=== PATIENT | female | born 1945 | race Two or more races ===

== ENCOUNTER → 2016-08-24 | Outpatient (CLI) | payer MEDICARE ==
[~2016-08-24] MED LIST: ACET325T14 PO; CIPR500T87 PO; CLON0.1T PO; CLOT10TR PO; ENAL20TA68 PO; LORA-445 PO; METF500T27 PO; OMEP-110 PO; PARO40TA45 PO
== END | disposition home or self-care (01) ==
LOC: CVU 09:13
PROVIDERS: ATTEND Internal Medicine Cardiovascular Disease
DX: I08.3 Combined rheumatic disorders of mitral, aortic and tricuspid valves (principal); I10 Essential (primary) hypertension; E11.9 Type 2 diabetes mellitus without complications; I63.9 Cerebral infarction, unspecified; I25.2 Old myocardial infarction; I65.23 Occlusion and stenosis of bilateral carotid arteries; R06.02 Shortness of breath; F17.210 Nicotine dependence, cigarettes, uncomplicated
CPT/HCPCS: 93306; 93880; 93978

== ENCOUNTER → 2016-08-31 | Outpatient (CLI) | payer MEDICARE | END | disposition home or self-care (01) | LOC: CARD 15:41 | PROVIDERS: ATTEND Internal Medicine Cardiovascular Disease | DX: R06.02 Shortness of breath (principal); I63.9 Cerebral infarction, unspecified; I10 Essential (primary) hypertension; F17.210 Nicotine dependence, cigarettes, uncomplicated | CPT/HCPCS: 94060; 94729 ==

== ENCOUNTER → 2016-09-01 | Outpatient (CLI) | payer MEDICARE ==
[~2016-09-01] MED LIST changes: +REGADENOSON 0.4 MG/5 ML SYRINGE ONE
== END | disposition home or self-care (01) ==
LOC: CFH 08-26 08:46
PROVIDERS: ATTEND Internal Medicine Cardiovascular Disease
DX: I10 Essential (primary) hypertension (principal); R06.02 Shortness of breath; I63.9 Cerebral infarction, unspecified; F17.210 Nicotine dependence, cigarettes, uncomplicated
CPT/HCPCS: 78452; 93017; A9502; J2785

== ENCOUNTER → 2018-03-29 | Outpatient (CLI) | payer OTHER ==
[~2018-03-29] MED LIST changes: -CLON0.1T PO; +CLON0.1T22 PO; +GADOBUTROL 7.5 MMOL/7.5 ML PFS ONE; -PARO40TA45 PO; +PARO40TA61 PO; -REGADENOSON 0.4 MG/5 ML SYRINGE ONE
== END | disposition home or self-care (01) ==
LOC: RAD 13:38
PROVIDERS: ATTEND Family Medicine
DX: R55 Syncope and collapse (principal); H53.9 Unspecified visual disturbance
CPT/HCPCS: 70553; A9585

== ENCOUNTER 2018-09-05 15:39 | Emergency (ER) | payer OTHER ==
[~2018-09-05] VITALS: Ht 157.5 cm; Wt 75.0 kg
[~2018-09-05 15:39] MED LIST changes: -GADOBUTROL 7.5 MMOL/7.5 ML PFS ONE
[2018-09-05 15:41] VITALS: BP 118/63
[2018-09-05] MEDS ORDERED: ACETAMINOPHEN 500 MG TABLET PO ONE (16:30)
[2018-09-05] MEDS ORDERED: ACETAMINOPHEN 500 MG TABLET ONE (16:31)
--- NOTE | 2018-09-05 16:37 | NUR ---
PT HERE FOR CHRONIC BACK PAIN. PT DENIES TRAUMA AT THIS TIME.
--- NOTE | 2018-09-05 17:08 | NUR ---
Patient/Caregiver given discharge instructions and they have confirmed that they understand the instructions. Patient ambulatory with steady gait.
== END 2018-09-05 17:10 | disposition home or self-care (01) ==
LOC: ED 16:45
DX: G89.29 Other chronic pain (principal); M54.5 Low back pain; E78.5 Hyperlipidemia, unspecified; I10 Essential (primary) hypertension; E11.9 Type 2 diabetes mellitus without complications; F17.200 Nicotine dependence, unspecified, uncomplicated
CPT/HCPCS: 99282

== ENCOUNTER → 2018-09-19 | Outpatient (CLI) | payer OTHER | END | disposition home or self-care (01) | LOC: CFH 09:26 | PROVIDERS: ATTEND Nurse Practitioner Family | DX: M47.817 Spondylosis without myelopathy or radiculopathy, lumbosacral region (principal); M48.07 Spinal stenosis, lumbosacral region | CPT/HCPCS: 72148 ==

== ENCOUNTER 2019-04-04 06:29 | Inpatient (IN) | payer MEDICARE ==
[2019-04-01 09:06] LABS: BASOPHILS # (AUTO) 0.06 x10^3/uL (0-0.1); BASOPHILS % (AUTO) 1 % (0-1); EOSINOPHILS % (AUTO) 4 % (1-7); LYMPHOCYTES # (AUTO) 2.22 x10^3/uL (1-3.4); LYMPHOCYTES % (AUTO) 30 % (22-44); MD NO; MEAN CORPUSCULAR HEMOGLOBIN 28.4 pg (27.0-34.8); MEAN CORPUSCULAR HGB CONC 32.5 g/dL (32.4-35.8); MEAN CORPUSCULAR VOLUME 87.2 fL (80-100); MEAN PLATELET VOLUME 10.4 fL (7.4-10.4); MONOCYTES # (AUTO) 0.63 x10^3/uL (0.2-0.8); MONOCYTES % (AUTO) 9 % (2-9); NEUTROPHILS # (AUTO) 4.09 x10^3/uL (1.8-6.8); NEUTROPHILS % (AUTO) 56 % (42-75); PLATELET COUNT 204 x10^3/uL (130-400); RED BLOOD COUNT 4.41 x10^6/uL (3.82-5.3); RED CELL DISTRIBUTION WIDTH 15.6 % (9.6-15.2)
[2019-04-01 09:19] LABS: INTERNATIONAL NORMALIZED RATIO 0.98 (0.93-1.1); PROTHROMBIN TIME 10.3 Seconds (9.6-11.5)
[2019-04-01 09:21] LABS: CHLORIDE 109 mmol/L (98-107)
[2019-04-01 09:27] LABS: MICROSCOPIC INDICATED
[2019-04-01 09:28] LABS: ALANINE AMINOTRANSFERASE 21 U/L (12-78); ALBUMIN 3.8 g/dL (3.4-5.0); ALKALINE PHOSPHATASE 134 U/L (45-117); ANION GAP 10 mmol/L (5-15); BILIRUBIN,TOTAL 0.2 mg/dL (0.2-1.0); CALCIUM 8.5 mg/dL (8.5-10.1); CREATININE 0.81 mg/dL (0.55-1.02); TOTAL PROTEIN 7.8 g/dL (6.4-8.2)
[~2019-04-04] VITALS: Ht 157.5 cm; Wt 83.9 kg
[~2019-04-04 06:29] MED LIST changes: +BACITRACIN 50,000 UNIT ONE; +BUPIVACAINE/PF 0.5% ONE; +EPINEPHRINE 1 MG/ML, 1ML ONE; +NICO1PAT31 TD; +PARO10TA3 PO; +VANCOMYCIN 1,000 MG ONE
[2019-04-04] MEDS ORDERED: SCOPOLAMINE PATCH, 1.5MG PATCH.TD72 TD ONE (07:30)
[2019-04-04] MEDS ORDERED: GABAPENTIN 300 MG CAPSULE PO ONE (07:30)
[2019-04-04] MEDS ORDERED: ACETAMINOPHEN 500 MG TABLET PO ONE (07:30)
[2019-04-04] MEDS ORDERED: LACTATED RINGERS 1,000 ML IV SCH (08:16)
[2019-04-04] MEDS ORDERED: FENTANYL PF 250 MCG/5ML ONE (08:32)
[2019-04-04] MEDS ORDERED: MIDAZOLAM 1 MG/ML, 2ML ONE (08:32)
[2019-04-04 08:53] LABS: MICROSCOPIC INDICATED
[2019-04-04] MEDS ORDERED: ROCURONIUM 10MG/ML,5ML ONE (09:31)
[2019-04-04] MEDS ORDERED: SUCCINYLCHOLINE 20 MG/ML, 10ML ONE (09:31)
[2019-04-04] MEDS ORDERED: DEXAMETHASONE 4 MG/ML, 1ML ONE (09:31)
[2019-04-04] MEDS ORDERED: PROPOFOL 10 MG/ML, 20ML ONE (09:31)
[2019-04-04] MEDS ORDERED: ONDANSETRON 2MG/ML, 2ML ONE (09:31)
[2019-04-04] MEDS ORDERED: SUGAMMADEX 200 MG/2 ML IVPush ONE (09:31)
[2019-04-04] MEDS ORDERED: CEFAZOLIN 1,000 MG ONE (09:31)
[2019-04-04] MEDS ORDERED: MEPERIDINE/PF 25MG/0.5ML IVPush PRN ×2 (11:00)
[2019-04-04] MEDS ORDERED: METOCLOPRAMIDE 5 MG/ML, 2ML IV PRN ×2 (11:00)
[2019-04-04] MEDS ORDERED: DIAZEPAM 5 MG/ML, 2ML IV PRN ×2 (11:00)
[2019-04-04] MEDS ORDERED: ALBUTEROL SULFATE 2.5 MG/3 ML NPPB PRN ×2 (11:00)
[2019-04-04] MEDS ORDERED: HYDROmorphone 1 MG/ML, 1ML INJ IV PRN ×2 (11:00)
[2019-04-04] MEDS ORDERED: LABETALOL 5MG/ML, 20ML IV PRN ×3 (11:00→15:00)
[2019-04-04] MEDS ORDERED: KETOROLAC 30 MG/1 ML IV PRN ×2 (11:00)
[2019-04-04] MEDS ORDERED: OXYcodone 5 MG/5 ML ORAL.SOL UDC PO PRN ×2 (11:00)
[2019-04-04] MEDS ORDERED: PROMETHAZINE 25 MG/ML, 1ML IV PRN ×2 (11:00)
[2019-04-04] MEDS ORDERED: hydrALAzine 20 MG/ML, 1ML IV PRN ×2 (11:00)
[2019-04-04] MEDS ORDERED: ONDANSETRON 2MG/ML, 2ML IVPush PRN ×2 (11:00)
[2019-04-04] MEDS ORDERED: FENTANYL PF 100 MCG/2ML IV PRN (11:00)
[2019-04-04] MEDS ORDERED: METHOCARBAMOL 1,000 MG in DEXTROSE 5% 100 ML IV ONE (12:30)
[2019-04-04] MEDS ORDERED: FENTANYL PF 100 MCG/2ML ONE (13:01)
[2019-04-04] MEDS: FENTANYL PF 100 MCG/2ML IV PRN ×2 (13:03→13:08)
[2019-04-04] MEDS ORDERED: BISACODYL 10 MG SUPP PR PRN (15:00)
[2019-04-04] MEDS ORDERED: DIPHENHYDRAMINE 50 MG/ML, 1ML IM PRN (15:00)
[2019-04-04] MEDS ORDERED: METHOCARBAMOL 750 MG TABLET PO PRN (15:00)
[2019-04-04] MEDS ORDERED: ONDANSETRON 2MG/ML, 2ML IV PRN (15:00)
[2019-04-04] MEDS ORDERED: HYDROcodone/APAP 5/325 TABLET PO PRN (15:00)
[2019-04-04] MEDS ORDERED: DIPHENHYDRAMINE 50 MG/ML, 1ML IVPush PRN (15:00)
[2019-04-04] MEDS ORDERED: PROMETHAZINE 25 MG/ML, 1ML IM PRN (15:00)
[2019-04-04] MEDS: NICOTINE MC SCH ×2 (15:30→23:30)
[2019-04-04] MEDS ORDERED: DIPHENHYDRAMINE 25 MG CAPSULE PO PRN (16:00)
[2019-04-04] MEDS ORDERED: HYDROmorphone 2 MG/ML, 1ML IVPush PRN (16:00)
[2019-04-04] MEDS: INSULIN REGULAR 100 UNITS/ML, 3ML VIAL SQ-INSULIN SCH ×2 (17:18→21:00)
[2019-04-04] MEDS: NS + 20MEQ KCL 1,000 ML IV SCH (17:23)
[2019-04-04] MEDS: CEFAZOLIN PMX 1GM/50ML 50 ML IVPB SCH (17:30)
[2019-04-04 18:32] VITALS: BP 134/73
[2019-04-04] MEDS: ENALAPRIL 20MG TABLET PO SCH (23:16)
[2019-04-04] MEDS: metFORMIN XR 500 MG TAB.ER.24H PO SCH (23:16)
[2019-04-04] MEDS: OXYcodone/APAP 5/325MG TABLET PO PRN (23:19)
[2019-04-04] MEDS: PAROXETINE 20 MG TABLET PO SCH (23:19)
[2019-04-05 00:33] VITALS: BP 133/66
[2019-04-05] MEDS: CEFAZOLIN PMX 1GM/50ML 50 ML IVPB SCH ×2 (01:30→20:51)
[2019-04-05] MEDS: NS + 20MEQ KCL 1,000 ML IV SCH (02:00)
[2019-04-05 04:13] VITALS: BP 148/74
[2019-04-05] MEDS: OXYcodone/APAP 5/325MG TABLET PO PRN (04:39)
[2019-04-05] MEDS ORDERED: BACITRACIN 50,000 UNIT ONE (06:22)
[2019-04-05] MEDS ORDERED: EPINEPHRINE 1 MG/ML, 1ML ONE (06:22)
[2019-04-05] MEDS ORDERED: BUPIVACAINE/PF 0.25% ONE (06:22)
[2019-04-05] MEDS ORDERED: THROMBIN 5,000 UNIT VIAL TP ONE (06:22)
[2019-04-05] MEDS ORDERED: BUPIVACAINE/PF 0.5% ONE (06:22)
[2019-04-05] MEDS ORDERED: VANCOMYCIN 1,000 MG ONE (06:22)
[2019-04-05] MEDS: OMEPRAZOLE 20 MG CAPSULE.DR PO SCH (06:59)
[2019-04-05 07:09] VITALS: BP 129/68
[2019-04-05 07:22] LABS: ANION GAP 8 mmol/L (5-15); CALCIUM 8.1 mg/dL (8.5-10.1); CHLORIDE 110 mmol/L (98-107); CREATININE 0.69 mg/dL (0.55-1.02)
[2019-04-05 07:39] LABS: BASOPHILS # (AUTO) 0.03 x10^3/uL (0-0.1); BASOPHILS % (AUTO) 0 % (0-1); EOSINOPHILS # (AUTO) 0.02 x10^3/uL (0-0.4); EOSINOPHILS % (AUTO) 0 % (1-7); LYMPHOCYTES # (AUTO) 1.65 x10^3/uL (1-3.4); LYMPHOCYTES % (AUTO) 18 % (22-44); MD NO; MEAN CORPUSCULAR HEMOGLOBIN 28.3 pg (27.0-34.8); MEAN CORPUSCULAR HGB CONC 32.8 g/dL (32.4-35.8); MEAN CORPUSCULAR VOLUME 86.5 fL (80-100); MEAN PLATELET VOLUME 11.8 fL (7.4-10.4); MONOCYTES # (AUTO) 0.68 x10^3/uL (0.2-0.8); MONOCYTES % (AUTO) 7 % (2-9); NEUTROPHILS % (AUTO) 75 % (42-75); PLATELET COUNT 156 x10^3/uL (130-400); RED BLOOD COUNT 3.83 x10^6/uL (3.82-5.3); RED CELL DISTRIBUTION WIDTH 15.3 % (9.6-15.2)
[2019-04-05] MEDS: INSULIN REGULAR 100 UNITS/ML, 3ML VIAL SQ-INSULIN SCH ×4 (07:48→21:33)
[2019-04-05] MEDS ORDERED: BUTALB/APAP/CAFFEINE 50MG/325MG/40MG PO ONE (08:30)
[2019-04-05] MEDS ORDERED: PAROXETINE 20 MG TABLET PO SCH (09:00)
[2019-04-05] MEDS: SENNA/DOCUSATE TABLET PO SCH (09:31)
[2019-04-05] MEDS: PAROXETINE 10 MG TABLET PO SCH (09:31)
[2019-04-05] MEDS: NICOTINE 14MG/24 HR PATCH.TD24 TD SCH (09:31)
[2019-04-05] MEDS ORDERED: FENTANYL PF 250 MCG/5ML ONE (10:09)
[2019-04-05] MEDS ORDERED: GLYCOPYRROLATE 0.2MG/1ML, 5ML ONE (10:17)
[2019-04-05] MEDS ORDERED: PROPOFOL 10 MG/ML, 20ML ONE (10:17)
[2019-04-05] MEDS ORDERED: PROPOFOL 100 ML ONE (10:17)
[2019-04-05] MEDS ORDERED: ROCURONIUM 10MG/ML,5ML ONE (10:17)
[2019-04-05] MEDS ORDERED: ONDANSETRON 2MG/ML, 2ML ONE (10:17)
[2019-04-05] MEDS ORDERED: DEXAMETHASONE 4 MG/ML, 1ML ONE (10:17)
[2019-04-05] MEDS ORDERED: NEOSTIGMINE 1 MG/ML, 10ML ONE (10:17)
[2019-04-05] MEDS ORDERED: CEFAZOLIN 1,000 MG ONE (10:17)
[2019-04-05] MEDS ORDERED: BUPIVACAINE 0.25% ONE (10:21)
[2019-04-05] MEDS ORDERED: ACETAMINOPHEN 500 MG TABLET PO ONE (10:30)
[2019-04-05] MEDS ORDERED: GABAPENTIN 300 MG CAPSULE PO ONE (10:30)
[2019-04-05] MEDS ORDERED: HALOPERIDOL 5 MG/ML IV PRN (11:30)
[2019-04-05] MEDS ORDERED: hydrALAzine 20 MG/ML, 1ML IV PRN (11:30)
[2019-04-05] MEDS ORDERED: PROMETHAZINE 25 MG/ML, 1ML IV PRN (11:30)
[2019-04-05] MEDS ORDERED: OXYcodone 5 MG/5 ML ORAL.SOL UDC PO PRN (11:30)
[2019-04-05] MEDS ORDERED: MORPHINE SULFATE 4 MG/ML, 1ML IVPush PRN (11:30)
[2019-04-05] MEDS ORDERED: LABETALOL 5MG/ML, 20ML IV PRN (11:30)
[2019-04-05] MEDS ORDERED: FENTANYL PF 100 MCG/2ML IV PRN (11:30)
[2019-04-05] MEDS ORDERED: HYDROmorphone 2 MG/ML, 1ML IVPush PRN (11:30)
[2019-04-05] MEDS ORDERED: MEPERIDINE/PF 25MG/ML,1ML IVPush PRN (11:30)
[2019-04-05] MEDS ORDERED: PROPOFOL 10 MG/ML, 50ML ONE (11:32)
[2019-04-05] MEDS ORDERED: PHENYLEPHRINE 10 MG/ML ONE (11:32)
[2019-04-05] MEDS ORDERED: EPINEPHRINE 1 MG/ML, 1ML INFIL ONE (12:34)
[2019-04-05] MEDS ORDERED: BUPIVACAINE/PF 0.5% INFIL ONE (12:34)
[2019-04-05] MEDS ORDERED: VANCOMYCIN 1,000 MG IM ONE (12:35)
[2019-04-05] MEDS ORDERED: BUPIVACAINE LIPOSOME/PF 20ML INFIL ONE (12:35)
[2019-04-05] MEDS ORDERED: FENTANYL PF 100 MCG/2ML ONE ×2 (12:51→13:08)
[2019-04-05] MEDS ORDERED: BUPIVACAINE/PF 0.25% EPIDPUSH ONE (13:12)
[2019-04-05] MEDS ORDERED: FENTANYL PF 100 MCG/2ML EPIDPUSH ONE (13:13)
[2019-04-05] MEDS ORDERED: BUPIVACAINE LIPOSOME/PF 10ML INFIL ONE (13:26)
[2019-04-05] MEDS ORDERED: EPHEDRINE 50 MG/ML, 1ML ONE (13:43)
[2019-04-05] MEDS: EPHEDRINE 50 MG/ML, 1ML IVPush PRN ×3 (13:48→14:33)
[2019-04-05] MEDS ORDERED: HYDROcodone/APAP 10/325 MG TABLET PO PRN (14:00)
[2019-04-05] MEDS ORDERED: PHARMACY MAY ADJ FOR RENAL FX MC PRN (14:00)
[2019-04-05] MEDS ORDERED: METHOCARBAMOL 750 MG TABLET PO PRN (14:00)
[2019-04-05] MEDS ORDERED: PROMETHAZINE 25 MG/ML, 1ML IM PRN (14:00)
[2019-04-05] MEDS ORDERED: CYCLOBENZAPRINE 10 MG TABLET PO PRN (14:00)
[2019-04-05] MEDS ORDERED: ONDANSETRON 2MG/ML, 2ML IVPush PRN (14:00)
[2019-04-05] MEDS ORDERED: morphine SULFATE 10 MG/ML, 1ML IVPush PRN (14:00)
[2019-04-05] MEDS ORDERED: PHENYLEPHRINE 10 MG in SODIUM CHLORIDE 0.9% 249 ML IV PRN (15:00)
[2019-04-05 17:01] VITALS: BP 107/56
[2019-04-05 19:28] VITALS: BP 123/65
[2019-04-05] MEDS: metFORMIN XR 500 MG TAB.ER.24H PO SCH (21:27)
[2019-04-05] MEDS: PAROXETINE 20 MG TABLET PO SCH (21:27)
[2019-04-05] MEDS: ENALAPRIL 20MG TABLET PO SCH (21:28)
[2019-04-05] MEDS: SODIUM CHLORIDE FLUSH 10ML SYR IVF SCH (21:30)
[2019-04-06] VITALS: BP 124/63
[2019-04-06] MEDS: OXYcodone/APAP 5/325MG TABLET PO PRN ×2 (00:51→05:56)
[2019-04-06] MEDS: NS + 20MEQ KCL 1,000 ML IV SCH ×2 (00:52→20:52)
[2019-04-06] MEDS: CEFAZOLIN PMX 1GM/50ML 50 ML IVPB SCH (05:37)
[2019-04-06 05:43] LABS: ANION GAP 9 mmol/L (5-15); CALCIUM 8.2 mg/dL (8.5-10.1); CHLORIDE 111 mmol/L (98-107)
[2019-04-06 05:45] LABS: CREATININE 0.79 mg/dL (0.55-1.02)
[2019-04-06 05:53] LABS: BASOPHILS # (AUTO) 0.02 x10^3/uL (0-0.1); BASOPHILS % (AUTO) 0 % (0-1); EOSINOPHILS % (AUTO) 0 % (1-7); LYMPHOCYTES # (AUTO) 1.81 x10^3/uL (1-3.4); LYMPHOCYTES % (AUTO) 16 % (22-44); MD NO; MEAN CORPUSCULAR HEMOGLOBIN 28.8 pg (27.0-34.8); MEAN CORPUSCULAR HGB CONC 32.8 g/dL (32.4-35.8); MEAN CORPUSCULAR VOLUME 87.9 fL (80-100); MEAN PLATELET VOLUME 11.6 fL (7.4-10.4); MONOCYTES % (AUTO) 8 % (2-9); NEUTROPHILS # (AUTO) 8.78 x10^3/uL (1.8-6.8); NEUTROPHILS % (AUTO) 76 % (42-75); PLATELET COUNT 164 x10^3/uL (130-400); RED BLOOD COUNT 3.61 x10^6/uL (3.82-5.3); RED CELL DISTRIBUTION WIDTH 15.4 % (9.6-15.2)
[2019-04-06] MEDS: OMEPRAZOLE 20 MG CAPSULE.DR PO SCH (05:56)
[2019-04-06] MEDS: INSULIN REGULAR 100 UNITS/ML, 3ML VIAL SQ-INSULIN SCH ×4 (06:08→20:35)
[2019-04-06 07:40] VITALS: BP 145/73
[2019-04-06] MEDS: SODIUM CHLORIDE FLUSH 10ML SYR IVF SCH ×2 (09:00→20:48)
[2019-04-06] MEDS: NICOTINE 14MG/24 HR PATCH.TD24 TD SCH (09:09)
[2019-04-06] MEDS: SULFAMETH./TRIMETHOPRIM DS 800MG/160MG TABLET PO SCH ×2 (09:09→20:47)
[2019-04-06] MEDS: SENNA/DOCUSATE TABLET PO SCH (09:09)
[2019-04-06] MEDS: PAROXETINE 10 MG TABLET PO SCH (09:09)
[2019-04-06] MEDS: HYDROcodone/APAP 5/325 TABLET PO PRN ×2 (10:33→20:47)
[2019-04-06 12:56] VITALS: BP 136/70
[2019-04-06] MEDS: MAGNESIUM HYDROXIDE 8%, 30ML UDC PO PRN (16:01)
[2019-04-06 20:16] VITALS: BP 144/74
[2019-04-06] MEDS: PAROXETINE 20 MG TABLET PO SCH (20:47)
[2019-04-06] MEDS: ENALAPRIL 20MG TABLET PO SCH (20:52)
[2019-04-06] MEDS: metFORMIN XR 500 MG TAB.ER.24H PO SCH (20:52)
[2019-04-07 02:11] VITALS: BP 152/82
[2019-04-07 05:39] LABS: BASOPHILS # (AUTO) 0.03 x10^3/uL (0-0.1); BASOPHILS % (AUTO) 0 % (0-1); EOSINOPHILS # (AUTO) 0.04 x10^3/uL (0-0.4); EOSINOPHILS % (AUTO) 0 % (1-7); LYMPHOCYTES # (AUTO) 1.08 x10^3/uL (1-3.4); LYMPHOCYTES % (AUTO) 12 % (22-44); MD NO; MEAN CORPUSCULAR HEMOGLOBIN 28.4 pg (27.0-34.8); MEAN CORPUSCULAR HGB CONC 32.8 g/dL (32.4-35.8); MEAN CORPUSCULAR VOLUME 86.6 fL (80-100); MEAN PLATELET VOLUME 11.4 fL (7.4-10.4); MONOCYTES # (AUTO) 0.75 x10^3/uL (0.2-0.8); MONOCYTES % (AUTO) 8 % (2-9); NEUTROPHILS # (AUTO) 7.36 x10^3/uL (1.8-6.8); NEUTROPHILS % (AUTO) 80 % (42-75); PLATELET COUNT 152 x10^3/uL (130-400); RED BLOOD COUNT 3.47 x10^6/uL (3.82-5.3); RED CELL DISTRIBUTION WIDTH 15.4 % (9.6-15.2)
[2019-04-07 05:50] LABS: ANION GAP 8 mmol/L (5-15); CALCIUM 8.2 mg/dL (8.5-10.1); CHLORIDE 107 mmol/L (98-107)
[2019-04-07 05:51] LABS: CREATININE 0.63 mg/dL (0.55-1.02)
[2019-04-07] MEDS: INSULIN REGULAR 100 UNITS/ML, 3ML VIAL SQ-INSULIN SCH ×4 (06:15→21:00)
[2019-04-07] MEDS: OMEPRAZOLE 20 MG CAPSULE.DR PO SCH (06:15)
[2019-04-07 06:39] VITALS: BP 151/71
[2019-04-07] MEDS: PAROXETINE 10 MG TABLET PO SCH (08:21)
[2019-04-07] MEDS: SENNA/DOCUSATE TABLET PO SCH (08:21)
[2019-04-07] MEDS: SULFAMETH./TRIMETHOPRIM DS 800MG/160MG TABLET PO SCH ×2 (08:21→20:58)
[2019-04-07] MEDS: NICOTINE 14MG/24 HR PATCH.TD24 TD SCH (08:21)
[2019-04-07] MEDS: SODIUM CHLORIDE FLUSH 10ML SYR IVF SCH ×2 (08:23→21:00)
[2019-04-07] MEDS: OXYcodone/APAP 5/325MG TABLET PO PRN ×3 (09:55→23:52)
[2019-04-07] MEDS: NS + 20MEQ KCL 1,000 ML IV SCH (11:16)
[2019-04-07 13:37] VITALS: BP 147/78
[2019-04-07] MEDS: MAGNESIUM HYDROXIDE 8%, 30ML UDC PO PRN (16:03)
[2019-04-07 19:46] VITALS: BP 116/68
[2019-04-07] MEDS: metFORMIN XR 500 MG TAB.ER.24H PO SCH (20:57)
[2019-04-07] MEDS: PAROXETINE 20 MG TABLET PO SCH (20:57)
[2019-04-07] MEDS: ENALAPRIL 20MG TABLET PO SCH (20:58)
[2019-04-08] MEDS: NS + 20MEQ KCL 1,000 ML IV SCH (00:40)
[2019-04-08 00:56] VITALS: BP 130/75
[2019-04-08] MEDS: OMEPRAZOLE 20 MG CAPSULE.DR PO SCH (06:15)
[2019-04-08] MEDS: INSULIN REGULAR 100 UNITS/ML, 3ML VIAL SQ-INSULIN SCH ×2 (06:17→11:00)
[2019-04-08 06:46] VITALS: BP 136/72
[2019-04-08] MEDS: SULFAMETH./TRIMETHOPRIM DS 800MG/160MG TABLET PO SCH (09:29)
[2019-04-08] MEDS: NICOTINE 14MG/24 HR PATCH.TD24 TD SCH (09:29)
[2019-04-08] MEDS: SENNA/DOCUSATE TABLET PO SCH (09:29)
[2019-04-08] MEDS: PAROXETINE 10 MG TABLET PO SCH (09:29)
[2019-04-08] MEDS: SODIUM CHLORIDE FLUSH 10ML SYR IVF SCH (09:30)
[2019-04-08] MEDS ORDERED: METH750T87 PO (09:45)
[2019-04-08] MEDS ORDERED: OXYC-302 PO (09:45)
[2019-04-08] MEDS ORDERED: SULF1TAB24 PO (09:46)
[2019-04-08 11:15] VITALS: BP 134/76
== END 2019-04-08 11:55 | disposition home or self-care (01) | DRG 455 ==
LOC: ORIP 06:29 → 4NE 14:43 → DCLOUNGE 04-08 11:40
PROVIDERS: ADMIT Neurological Surgery; ATTEND Neurological Surgery
PROC: 0SG10A0 Fusion of 2 or more Lumbar Vertebral Joints with Interbody Fusion Device, Anterior Approach, Anterior Column, Open Approach (ICD-10-PCS; 2019-04-04)
PROC: 4A11X4G Monitoring of Peripheral Nervous Electrical Activity, Intraoperative, External Approach (ICD-10-PCS; 2019-04-04)
PROC: 0SB20ZZ Excision of Lumbar Vertebral Disc, Open Approach (ICD-10-PCS; 2019-04-04)
PROC: 01NB0ZZ Release Lumbar Nerve, Open Approach (ICD-10-PCS; 2019-04-05)
PROC: 00NY0ZZ Release Lumbar Spinal Cord, Open Approach (ICD-10-PCS; 2019-04-05)
PROC: 4A11X4G Monitoring of Peripheral Nervous Electrical Activity, Intraoperative, External Approach (ICD-10-PCS; 2019-04-05)
PROC: 0SG1071 Fusion of 2 or more Lumbar Vertebral Joints with Autologous Tissue Substitute, Posterior Approach, Posterior Column, Open Approach (ICD-10-PCS; principal; 2019-04-05 14:00)
DX: M48.062 Spinal stenosis, lumbar region with neurogenic claudication (principal); M51.16 Intervertebral disc disorders with radiculopathy, lumbar region; F41.9 Anxiety disorder, unspecified; E11.9 Type 2 diabetes mellitus without complications; M47.896 Other spondylosis, lumbar region; Z88.8 Allergy status to other drugs, medicaments and biological substances; Z86.73 Personal history of transient ischemic attack (TIA), and cerebral infarction without residual deficits; K21.9 Gastro-esophageal reflux disease without esophagitis; I10 Essential (primary) hypertension; I25.2 Old myocardial infarction
CPT/HCPCS: 36415; 71046; 72100; 72131; 80048; 80053; 81001; 82962; 85025; 85610; 85730; 86850; 86900; 87086; 93005; C1713; C1776; C9290; G0378; J0171; J0690; J1100; J2250; J2405; J2704; J2710; J3010; J3370; J3480; J3490; C1751; C1760; C1763; C1769; C1889; J0330; J2370; J2800; J7120

== ENCOUNTER 2020-09-16 11:27 | Emergency (ER) | payer MEDICARE ==
[2020-09-16] VITALS (8 sets, daily range): BP systolic 108–154; BP diastolic 46–72
[~2020-09-16] VITALS: Ht 157.5 cm; Wt 65.1 kg
[~2020-09-16 11:27] MED LIST changes: -BACITRACIN 50,000 UNIT ONE; -BUPIVACAINE/PF 0.5% ONE; -EPINEPHRINE 1 MG/ML, 1ML ONE; +METH750T87 PO; +OXYC1TAB14 PO; +SULF-23 PO; -VANCOMYCIN 1,000 MG ONE
--- NOTE | 2020-09-16 12:07 | NUR ---
EKG IN TRIAGE
--- NOTE | 2020-09-16 12:09 | NUR ---
planning manager: Pt ambulatory to room from lobby at this time.
[2020-09-16 12:37] LABS: BASOPHILS % (AUTO) 2 % (0-1); EOSINOPHILS % (AUTO) 3 % (1-7); LYMPHOCYTES % (AUTO) 23 % (22-44); MEAN PLATELET VOLUME 9.3 fL (7.4-10.4); MONOCYTES % (AUTO) 12 % (2-9); NEUTROPHILS % (AUTO) 59 % (42-75); PLATELET COUNT 132 x10^3/uL (130-400); RED BLOOD COUNT 3.21 x10^6/uL (3.82-5.3); RED CELL DISTRIBUTION WIDTH 21.2 % (9.6-15.2)
--- NOTE | 2020-09-16 12:44 | NUR ---
PT AMBULATORY TO ROOM [address] MARTINEZ CALLED PT AND TOLD HER TO COME TO ED AFTER PT STATES HER BLOOD LEVELS WERE LOW AND NEEDED A BLOOD TRANSFUSION. PT STATES SHE HAD BLOOD WORK DONE ROUTINELY. PT STATES SHE HAS BEEN FEELING MORE TIRED OVER THE LAST MONTH. PT RESTING ON GURNEY. NADN. MONITORS APPLIED. VSS. WARM BLANKET PROVIDED. CALL LIGHT IN REACH.
[2020-09-16 12:46] LABS: MEAN CORPUSCULAR HGB CONC 28.7 g/dL (32.4-35.8)
[2020-09-16 12:47] LABS: ALBUMIN 3.6 g/dL (3.4-5.0); ANION GAP 8 mmol/L (5-15); CALCIUM 9.4 mg/dL (8.5-10.1); CHLORIDE 114 mmol/L (98-107)
[2020-09-16 12:50] LABS: ALANINE AMINOTRANSFERASE 14 U/L (12-78); ALKALINE PHOSPHATASE 100 U/L (45-117); BILIRUBIN,TOTAL 0.3 mg/dL (0.2-1.0); CREATININE 0.74 mg/dL (0.55-1.02); TOTAL PROTEIN 7.5 g/dL (6.4-8.2)
[2020-09-16 13:15] LABS: ANISOCYTOSIS 2+; HYPOCHROMIA 2+; MICROCYTOSIS 2+; OVALOCYTES 1+
[2020-09-16 13:16] LABS: <PLATELET ESTIMATE> ADEQUATE; <PLT MORPHOLOGY> NORMAL PLT MORPH
--- NOTE | 2020-09-16 13:38 | NUR ---
PT RESTING ON FE. VSS. AWARE OF POC FOR BLOOD TRANSFUSION AND IS AGREEABLE. CONSENT FOR BLOOD SIGNED BY PT, THIS RN, AND ERP DR. KWON.
--- NOTE | 2020-09-16 13:51 | NUR ---
1ST UNIT BLOOD TRANSFUSING.
--- NOTE | 2020-09-16 14:25 | NUR ---
PT RESTING ON GURU. EDWARDO. VSS. PT TOLERATING BLOOD TRANSFUSION.
--- NOTE | 2020-09-16 15:42 | NUR ---
1ST UNIT TRANSFUSED. PT RANDOLPH WELL. 2ND UNIT ORDERED FROM BLOOD BANK.
--- NOTE | 2020-09-16 15:56 | NUR ---
2ND UNIT TRANSFUSING. PT RESTING ON GURNEY. NADN. CHEEK.
--- NOTE | 2020-09-16 16:58 | NUR ---
Break rn- pt resting in bed. call light in reach
--- NOTE | 2020-09-16 17:18 | NUR ---
PT RESTING ON GURNEY. NADN. CHEEK.
== END 2020-09-16 17:39 | disposition home or self-care (01) ==
LOC: ED 13:54
DX: R55 Syncope and collapse (principal); D53.9 Nutritional anemia, unspecified; R06.00 Dyspnea, unspecified; I10 Essential (primary) hypertension; E11.9 Type 2 diabetes mellitus without complications; K21.9 Gastro-esophageal reflux disease without esophagitis; E78.5 Hyperlipidemia, unspecified
CPT/HCPCS: 36415; 36430; 80053; 85025; 86850; 86900; 86923; 93005; 99285; P9016

== ENCOUNTER 2020-10-23 09:59 | Emergency (ER) | payer MEDICARE ==
[~2020-10-23] VITALS: Ht 160 cm; Wt 62.9 kg
--- NOTE | 2020-10-23 10:12 | NUR ---
visual journalist: ekg done in pt room. dr andrews called to triage to r/o code neuro. per doctor andrews, no cod neuro. fsbs in triage 86
--- NOTE | 2020-10-23 10:26 | NUR ---
Pt taken to room 43, assisted to stand and undress has generalized weakness uses scooter. Right eye with periorbital swelling, redness. Pt reports frequent falls had one today doesn't know why. On monitor NSR no ectopy, EKG done to , IV and blood draw being done. Waiting for further orders.
--- NOTE | 2020-10-23 10:30 | NUR ---
Dr Dutton at bedside for evaluation. Pt is very pale, has hx of anemia and recent transfusion.
--- NOTE | 2020-10-23 10:36 | NUR ---
Side rails up, call gonzalez in reach, bed low, NSR no ectopy, IV patent. AIDET provided.
[2020-10-23] MEDS ORDERED: ALBUTEROL/IPRATROPIUM 2.5MG/0.5MG, 3 ML ONE ×2 (10:54→11:04)
--- NOTE | 2020-10-23 10:57 | NUR ---
Went to start HHN pt in CT. Will begin when returns.
[2020-10-23] MEDS ORDERED: ALBUTEROL/IPRATROPIUM 2.5MG/0.5MG, 3 ML NPPB ONE (11:00)
[2020-10-23 11:02] LABS: BASOPHILS % (AUTO) 1 % (0-1); EOSINOPHILS % (AUTO) 6 % (1-7); LYMPHOCYTES % (AUTO) 32 % (22-44); MEAN CORPUSCULAR HEMOGLOBIN 22.1 pg (27.0-34.8); MEAN PLATELET VOLUME 9.4 fL (7.4-10.4); MONOCYTES % (AUTO) 9 % (2-9); NEUTROPHILS % (AUTO) 52 % (42-75); PLATELET COUNT 160 x10^3/uL (130-400); RED BLOOD COUNT 4.12 x10^6/uL (3.82-5.3); RED CELL DISTRIBUTION WIDTH 25.4 % (9.6-15.2)
[2020-10-23 11:11] LABS: ALANINE AMINOTRANSFERASE 19 U/L (12-78); ALBUMIN 3.4 g/dL (3.4-5.0); ANION GAP 5 mmol/L (5-15); CALCIUM 8.6 mg/dL (8.5-10.1); CHLORIDE 114 mmol/L (98-107); CREATININE 0.76 mg/dL (0.55-1.02)
[2020-10-23 11:12] LABS: INTERNATIONAL NORMALIZED RATIO 1.1 (0.93-1.1); PROTHROMBIN TIME 11.7 Seconds (9.6-11.5)
[2020-10-23 11:14] LABS: ALKALINE PHOSPHATASE 117 U/L (45-117); BILIRUBIN,TOTAL 0.4 mg/dL (0.2-1.0); TOTAL PROTEIN 7.3 g/dL (6.4-8.2)
--- NOTE | 2020-10-23 11:14 | NUR ---
Back from CT, on monitor. RT here starting HHN. Requested urine also from pt.
--- NOTE | 2020-10-23 11:37 | NUR ---
PCXR being done now. VSS. AIDET updated.
[2020-10-23 11:45] LABS: <PLATELET ESTIMATE> ADEQUATE; ANISOCYTOSIS 2+; HYPOCHROMIA 1+; LARGE PLATELETS 1+; MICROCYTOSIS 2+; OVALOCYTES 1+
--- NOTE | 2020-10-23 12:10 | NUR ---
Up with assist in walker to bathroom, this science writer stayed with pt in br. Pt unable to void, pt refuses to have straight cath done for specimen. Waiting for ERP re-eval. Pt says she wants to go home.
--- NOTE | 2020-10-23 12:46 | NUR ---
Pt does not want straight cath, wants to be discharged. Spoke with ERP he will discuss with pt and family.
--- NOTE | 2020-10-23 13:05 | NUR ---
Report to RIYA Jackson
--- NOTE | 2020-10-23 13:29 | NUR ---
REPORT OF PT FROM RIYA GERONIMO. ASSUMING CARE OF PT AT THIS TIME.
--- NOTE | 2020-10-23 13:32 | NUR ---
DR RAMIREZ AT TO DISCUSS PT DISPO WITH FAMILY.
[2020-10-23 13:56] VITALS: BP 135/71
== END 2020-10-23 13:59 | disposition home or self-care (01) ==
LOC: ED 13:43
DX: G30.0 Alzheimer's disease with early onset (principal); F02.80 Dementia in other diseases classified elsewhere, unspecified severity, without behavioral disturbance, psychotic disturbance, mood disturbance, and anxiety; R10.84 Generalized abdominal pain; D50.0 Iron deficiency anemia secondary to blood loss (chronic); R51.9 Headache, unspecified; R07.89 Other chest pain; R06.2 Wheezing; I10 Essential (primary) hypertension; E11.9 Type 2 diabetes mellitus without complications; K21.9 Gastro-esophageal reflux disease without esophagitis
CPT/HCPCS: 36415; 70450; 71045; 80053; 82962; 85025; 85610; 85730; 86850; 86900; 93005; 94640; 99285